=== PATIENT | female | born 1975 | race Caucasian/White ===

== ENCOUNTER 2017-04-19 14:23 | Emergency (ER) | payer SELFPAY ==
[2017-04-19 14:35] VITALS: BMI 24.2
[2017-04-19 14:45] VITALS: RESP 16; TEMP 99.1; O2SAT 98
--- NOTE | 2017-04-19 15:39 | C.PDOC ---
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 Pt was walking across the street when she tripped and fell onto her left arm. Pt now with left arm pain and abrasions. Applied turmeric powder to wounds. Pt is right handed. Denies left shoulder pain, weakness, numbness or any other complaints. Denies head injury. History per family. Time Seen by Provider: 04/19/17 15:28 Chief Complaint (Nursing): Upper Extremity Problem/Injury History Per: Patient History/Exam Limitations: no limitations Onset/Duration Of Symptoms: Mins Current Symptoms Are (Timing): Still Present Quality: "Pain" Severity: Moderate Recent travel outside of the [place]: No Past Medical History Reviewed: Historical Data, Nursing Documentation, Vital Signs Vital Signs: Last Vital Signs Temp 99.1 F 04/19/17 14:35 Pulse 90 04/19/17 14:35 Resp 16 04/19/17 14:35 BP 125/83 04/19/17 14:35 Pulse Ox 98 04/19/17 17:56 - Medical History PMH: HTN Family History: States: Unknown Family Hx - Social History Hx Alcohol Use: No Hx Substance Use: No Review Of Systems Musculoskeletal: Positive for: Arm Pain (left arm pain/injury with abrasions) Neurological: Negative for: Weakness, Numbness Physical Exam - Physical Exam Appears: Non-toxic, No Acute Distress Skin: Warm, Dry, No Rash Head: Atraumatic, Normacephalic Extremity: Normal ROM (left shoulder), Tenderness (left forearm), Capillary Refill (<2 seconds), Deformity (left forearm), Swelling (left forearm), Other ( 1x0.5 cm superficial wound distal to 3rd forearm, no active bleeding. Abrasion to medial wrist. ) Pulses: Left Radial: Normal Neurological/Psych: Oriented x3, Normal Motor, Normal Sensation ED Course And Treatment O2 Sat by Pulse Oximetry: 98 (room air) Pulse Ox Interpretation: Normal - Physician Consult Information Time Consulting Physician Contacted: 04:20 (call unanswered, called again at 4: 40pm and 5:35pm. ) Physician Contacted: Dr. Martinez Outcome Of Conversation: Calls were made at 4:20pm, 4:40pm, and 5:35pm. Voicemails were left and calls were not returned. Patient and family did not want to continue waiting. Orthopedic Time Out: Side verified, Site verified, Patient ID confirmed Procedure: Splint Other:: orthoglass 4" sugartong splint Location: Left, Arm Consent obtained: Verbal Performed by: Mid-level Provider Diagnosis: Fracture Type: Closed, Angulated Location: Distal Bone: Radius, Ulna Anesthetic Technique: Oral pain medication (Tylenol and Morphine IM) Capillary refill: Normal Distal Sensation: Normal Distal Motor Function: Normal Capillary Refill: Normal Compartment: Soft, Tender Distal Sensation: Normal Patient tolerated procedure: With difficulty (mild pain) Notes:: Arm sling applied Medical Decision Making Medical Decision Making: Impression: Left forearm injury and fracture Plan: * XR left wrist and forearm * Morphine * Tetanus * Bacitracin Progress: Wound irrigated thoroughly with 500mL of NS. No foreign body or deep structure involvement. Bacitracin applied and sterile dressing applied XRay shows distal to the mid 1/2 shafts of the radius and ulna, complete transverse fractures of both bones. The distal fracture fragment is posterior and is overriding the proximal fragment. The ulnar fracture fragment has its proximal apex pitting volarly Page orthopedic Dr Martinez 1612 call and leave voicemail with service 1640 call and leave voicemail [phone] another attempt to call ortho Patient and family are asking for discharge, they do not wish to wait any longer for call back. I explain the orthopedic may be in surgery and can take time for response. Family states they want to be discharged and given pain meds. Case discussed with Dr Epperson who recommended splint and to continue calling and likely patient will have to follow up outpatient. Sugartong orthoglass splint was applied. Patient tolerated well and neurovascular intact. I gave written and verbal instructions for follow up with orthopedic After patient has been discharged. At 1823 Dr Martinez calls back ED and recommended reduction, sugartong splint and for patient to be discharged and follow up in office Disposition - Disposition Referrals: [facility] [Outside] Charlotte Martinez MD [Staff Provider] - Disposition: HOME/ ROUTINE Disposition Time: 18:15 Condition: FAIR Additional Instructions: Your xray shows a fracture. It is very important you follow up with orthopedic within 1-4 days. A splint has been applied which is a temporary cast. Do not wet splint, keep out of bath, and consider plastic bag. Take pain medication as needed. Seek medical attention if develop any numbness or pins and needle sensation. You may call [facility] service for any assistance [phone]. 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 - Scribe Statement The provider has reviewed the documentation as recorded by the Scribe Binu Ramirez All medical record entries made by the Mj were at my direction and personally dictated by me. I have reviewed the chart and agree that the record accurately reflects my personal performance of the history, physical exam, medical decision making, and the department course for this patient. I have also personally directed, reviewed, and agree with the discharge instructions and disposition.
--- NOTE | 2017-04-19 16:35 | RAD ---
PROCEDURE: Radiographs of the Left Forearm HISTORY: pain s.p injury COMPARISON: None available. TECHNIQUE: Frontal and lateral views obtained. FINDINGS: BONES: Just to distal to the mid 1/2 shafts of the radius and ulna, there are complete transverse fractures of both bones. The distal fracture fragment is posterior and is overriding the proximal fragment. The ulnar fracture fragment has its proximal apex pitting volarly. There is minimal over riding here suggested JOINT SPACES: Unremarkable. OTHER FINDINGS: None. IMPRESSION: Fractures as above
--- NOTE | 2017-04-19 16:36 | RAD ---
PROCEDURE: Left Wrist Radiographs. HISTORY: pain s.p injury COMPARISON: None. FINDINGS: BONES: Please note the left forearm which showed radial and ulnar midshaft fractures JOINTS: The ulna is subluxed ulnarly and dorsally there is widening separation of the radial ulnar joint SOFT TISSUES: Overlying soft tissue swelling here OTHER FINDINGS: None. IMPRESSION: As above
[2017-04-19] MEDS ORDERED: Bacitracin 500 Units/gm Oint Foilpak UD TOP ONE (17:31)
[2017-04-19] MEDS ORDERED: Tetanus/Diphtheria Toxoids 0.5 ml Syringe IM ONE (17:57)
[2017-04-19 18:19] VITALS: BP 119/75; PULSE 70
== END 2017-04-19 18:18 | disposition home or self-care (01) ==
LOC: C.ER 14:23
DX: S52.202A Unspecified fracture of shaft of left ulna, initial encounter for closed fracture (principal); S52.92XA Unspecified fracture of left forearm, initial encounter for closed fracture; W01.0XXA Fall on same level from slipping, tripping and stumbling without subsequent striking against object, initial encounter; Y93.01 Activity, walking, marching and hiking; Y92.410 Unspecified street and highway as the place of occurrence of the external cause; Z23 Encounter for immunization
CPT/HCPCS: 29125; 73090; 73110; 90471; 90715; 96372; 99285; J2270